=== PATIENT | female | born 1985 | race Two or more races ===

== ENCOUNTER 2025-02-18 18:35 | Inpatient (IN) | payer OTHER ==
[~2025-02-18] VITALS: Ht 160 cm; Wt 78.9 kg
--- NOTE | 2025-02-18 19:39 | NUR ---
PACIENTE ALERTA Y ORIENTADA X3 QUIEN REFIERE VENIR POR DOLOR ABDOMINAL DOLOR DE PECHO DESDE EL VIERNES POR LA NOCHE. PACIENTE REFIERE HABERSE REALIZADO MITA COLONOSCOPIA Y HEMORROIDES INTERNAS Y EXTERNAS CON [place]. ULTIMOS LABORATORIOS HEMOGLOBINA EN 8.3.
[2025-02-18] MEDS ORDERED: 0.9 % SODIUM CHLORIDE 1,000 ML IV ONE (20:15)
[2025-02-18] MEDS ORDERED: FAMOTIDINE/PF 20 MG/2 ML VIAL IV ONE (20:15)
[2025-02-18] MEDS ORDERED: FAMOTIDINE/PF 20 MG/2 ML VIAL ONE (21:25)
--- NOTE | 2025-02-18 21:57 | NUR ---
SE EDUCA PTE SOBRE TX Y ESTA REFIERE ENTENDER Y ACEPTAR. SE PROCEDE A COLECTAR MUESTRAS DE LABORATORIO Y CANALIZAR BAJO MEDIDAS ASEPTICAS. SE ADMINISTRAN MEDICAMENTOS LUCA ORDEN MEDICA.
[2025-02-18 22:00] LABS: BASO % 0.7 % (0.1-1.2); EOS # 0.28 (0.04-0.54); EOS % 2.4 % (0.7-7.0); LYMPH # 3.31 (1.18-3.74); LYMPH % 28.5 % (19.3-53.1); MEAN PLATELET VOLUME 10.20 fl (9.4-12.4); MONO # 0.76 (0.24-0.82); MONO % 6.5 % (4.7-12.5); NEUT # 7.16 (1.56-6.13); NEUT % 61.7 % (34.0-71.1); RED CELL DISTRIBUTION WIDTH 18.5 % (11.6-14.4)
[2025-02-18 22:17] LABS: INR 1.01
[2025-02-18 22:37] LABS: ALT/SGPT 22.0 U/L (12-78); AST/SGOT 10.0 U/L (15-37); BILIRUBIN TOTAL 0.2 mg/dL (0.3-1.2); BUN CREA RATIO 14.0 (7.0-25.0); CREATININE SERUM 0.69 mg/dL (0.55-1.02); GFR 95.22; GLOBULINA 3.7 G/DL (2.4-3.5); GLUCOSE FASTING 103.0 mg/dL (65-100); OSMOLALITY SERUM 282.0 MOSM/KG (275-295)
[2025-02-19 02:05] LABS: URINE APPEARANCE Clear; URINE BILIRRUBIN Negative (NEGATIVE); URINE BLOOD Negative; URINE COLOR Yellow; URINE GLUCOSE Negative (NEGATIVE); URINE KETONE Negative (NEGATIVE); URINE LEUKOCYTE Trace; URINE NITRATE Negative; URINE PROTEIN Negative (NEGATIVE); URINE UROBILINOGEN 0.2 E.U./dl
[2025-02-19 02:10] LABS: URINE BACTERIA 828.1 uL (0.0-1933); URINE EPITHELIAL CELLS 25.4 uL (0.0-38.8); URINE RBC 31.0 uL (0.0-20.8); URINE WBC 23.3 uL (0.0-23.2)
[2025-02-19 02:11] LABS: URINE CAST 0.00 uL (0.0-1.40)
--- NOTE | 2025-02-19 09:30 | NUR ---
7:16AM SE RECIBE LLAMADA DE MARLEEN.GEORGE DE B[place]CO DE [place] QUIEN VERBALIZA REQUISICION REALIZAZADA JUNIOR LA ALBERTINA FUE CANCELADA POR ERROR EN LA FIRMA. REFIERE REALIZAR REQUISICION [place]. 9:20AM SE REQUISA 1 UNIDAD DE PRBC'S COMPLETA. SE LLENA DOCUMENTO Y SE ENVIA A LABORATORIO.
[2025-02-19] MEDS ORDERED: CEFTRIAXONE SODIUM 2,000 MG in 0.9 % SODIUM CHLORIDE 100 ML IV SCH (12:52)
[2025-02-19] MEDS ORDERED: FERROUS SULFATE 325 MG TABLET.EC PO SCH (14:21)
[2025-02-19] MEDS ORDERED: FOLIC ACID 1 MG TABLET PO SCH (14:22)
[2025-02-19 15:22] VITALS: BP 102/60
[2025-02-19 23:27] LABS: BASO % 0.8 % (0.1-1.2); EOS # 0.24 (0.04-0.54); EOS % 2.6 % (0.7-7.0); LYMPH # 2.80 (1.18-3.74); LYMPH % 30.4 % (19.3-53.1); MEAN PLATELET VOLUME 10.50 fl (9.4-12.4); MONO # 0.61 (0.24-0.82); MONO % 6.6 % (4.7-12.5); NEUT # 5.46 (1.56-6.13); NEUT % 59.3 % (34.0-71.1); RED CELL DISTRIBUTION WIDTH 21.2 % (11.6-14.4)
[2025-02-20 02:16] VITALS: BP 92/60; O2SAT 99
[2025-02-20 06:20] LABS: INR 1.03
[2025-02-20 08:35] VITALS: BP 107/62
== END 2025-02-20 11:34 | disposition home or self-care (01) | DRG 379 ==
LOC: ER 18:36 → SEC-K 02-19 15:39 → MEDI 02-19 15:39
PROVIDERS: General Practice; ADMIT Internal Medicine; ATTEND Internal Medicine
PROC: BW21ZZZ Computerized Tomography (CT Scan) of Abdomen and Pelvis (ICD-10-PCS; 2025-02-18)
PROC: 30233N1 Transfusion of Nonautologous Red Blood Cells into Peripheral Vein, Percutaneous Approach (ICD-10-PCS; principal; 2025-02-19)
DX: K62.5 Hemorrhage of anus and rectum (principal)